=== PATIENT | female | born 1965 | race Caucasian/White ===

== ENCOUNTER 2017-02-03 09:05 | Emergency (ER) | payer BC ==
[2017-02-03 09:34] VITALS: BP 149/99; PULSE 92; TEMP 99; BMI 21.9
--- NOTE | 2017-02-03 09:35 | PDOC ---
History of Present Illness - General Chief Complaint: Respiratory Stated Complaint: COUGH & HEADACHE Time Seen by Provider: 02/03/17 09:29 History Source: Patient Past History - Past Medical History Allergies/Adverse Reactions: Allergies Allergy/AdvReac Type Severity Reaction Status Date / Time naproxen [From Naprosyn] Allergy Mild Swelling Verified 02/03/17 09:27 Home Medications: Ambulatory Orders Acetaminophen W/ Codeine #3 [Tylenol # 3 -] 1 tab PO Q6H #14 tablet MDD 3 Albuterol 0.083% Nebulizer Cortney [Ventolin 0.083% Nebulizer Soln -] 1 amp NEB QID PRN 02/03/17 Alprazolam [Xanax] 1 mg PO DAILY PRN 02/03/17 Azithromycin [Zithromax 250mg Tablets -] 250 mg PO UTDICT #6 tab 02/03/17 Benzonatate [Tessalon Pearls -] 100 mg PO TID 02/03/17 Ibuprofen [Advil -] 600 mg PO TID PRN 02/03/17 Prednisone 10 mg PO DAILY 02/03/17 COPD: No Psychiatric Problems: Yes (ANXIETY) - Surgical History Abdominal Surgery: Yes (CYSTS REMOVED FROM OVARIES) - Suicide/Smoking/Psychosocial Hx Smoking Status: No Smoking History: Unknown if ever smoked Have you smoked in the past 12 months: No Number of Cigarettes Smoked Daily: 0 Hx Alcohol Use: No Drug/Substance Use Hx: No Substance Use Type: None Hx Substance Use Treatment: No *Physical Exam - Vital Signs Last Vital Signs Temp Pulse Resp BP Pulse Ox 99.0 F 92 H 18 149/99 100 02/03/17 09:16 02/03/17 09:16 02/03/17 09:16 02/03/17 09:16 02/03/17 09:16 *DC/Admit/Observation/Transfer Diagnosis at time of Disposition: Pharyngitis Qualifiers: Pharyngitis/tonsillitis etiology: unspecified etiology Qualified Code(s): J02.9 - Acute pharyngitis, unspecified - Discharge Dispostion Disposition: HOME Condition at time of disposition: Good Admit: No - Referrals Referrals: Garry Gaffney MD [Primary Care Provider] - - Patient Instructions Printed Discharge Instructions: DI for Pharyngitis/Tonsillopharyngitis -- Adult Additional Instructions: Fluids, Use humidifier in the bedroom - Post Discharge Activity Forms/Work/School Notes: Back to Work
== END 2017-02-03 10:31 | disposition home or self-care (01) ==
LOC: FER 09:05
DX: J02.9 Acute pharyngitis, unspecified (principal); F41.9 Anxiety disorder, unspecified
CPT/HCPCS: 99281-25

== ENCOUNTER 2017-09-12 21:33 | Emergency (ER) | payer BC ==
[2017-09-12] MEDS ORDERED: AMOX TR/POT CLAV 875MG/125MG TABLETS (FP) PO ONE (21:35)
[2017-09-12] MEDS ORDERED: AMOX TR/POT CLAV 875MG/125MG TABLETS (FP) ONE (21:41)
[2017-09-12] MEDS ORDERED: morphine CARPU-JECT 2 MG/1 ML DISP.SYRIN IM ONE (21:43)
[2017-09-12 21:44] VITALS: TEMP 99; BMI 21.6
[2017-09-12] MEDS ORDERED: morphine SULFATE 4 MG/ML VIAL ONE (21:44)
[2017-09-12] MEDS ORDERED: TETANUS AND DIPHTHERIA TOXOID 0.5 ML DISP.SYRIN IM ONE (21:45)
[2017-09-12] MEDS ORDERED: DIPHTH,PERTUSS(ACELL),TET 0.5 ML DISP.SYRIN IM ONE (21:49)
--- NOTE | 2017-09-12 21:52 | PDOC ---
History of Present Illness - General History Source: Patient Exam Limitations: No Limitations - History of Present Illness Initial Comments: 09/12/17 21:55 The patient is a 51 year old female accompanied with her daughters, with a past medical history of hypertension, presents to the emergency department for evaluation of a dog bite. The patient reports receiving an unexpected dog bite to her perineum while arguing with her . She reports associated redness, burning, and pain, ranked 10/10 in severity. Denies bleeding or abnormal discharge. Of note, both the patient and dogs immunizations are UTD; however, pt is unable to recall if tetanus shot was within 5 years. The patient denies use of medication for aforementioned pain, history of surgeries, and any other injuries. Denies chest pain, shortness of breath, headache, fever, chills, nausea, vomiting, and any bowel/urinary symptoms. Allergies: Naproxen. Social History: No reported alcohol, cigarette, or drug use. Surgical History: Cysts removed from ovaries PCP: Dr. Gaffney <Quinn Lyons - Last Filed: 09/12/17 21:57> - General History Source: Patient Exam Limitations: No Limitations <Juju Richard - Last Filed: 09/12/17 22:36> - General Chief Complaint: Bite Stated Complaint: DOG BITE Time Seen by Provider: 09/12/17 21:35 Past History <Quinn Lyons - Last Filed: 09/12/17 21:57> - Past Medical History COPD: No HTN: Yes Psychiatric Problems: Yes (ANXIETY) - Surgical History Abdominal Surgery: Yes (CYSTS REMOVED FROM OVARIES) - Immunization History Td Vaccination: Yes TDAP Vaccination: Yes Immunization Up to Date: Yes - Suicide/Smoking/Psychosocial Hx Smoking Status: No Smoking History: Never smoked Have you smoked in the past 12 months: No Number of Cigarettes Smoked Daily: 0 Information on smoking cessation initiated: No Hx Alcohol Use: No Drug/Substance Use Hx: No Substance Use Type: None Hx Substance Use Treatment: No <Juju Richard - Last Filed: 09/12/17 22:36> - Past Medical History Allergies/Adverse Reactions: Allergies Allergy/AdvReac Type Severity Reaction Status Date / Time naproxen [From Naprosyn] Allergy Mild Swelling Verified 09/12/17 21:34 Home Medications: Ambulatory Orders Alprazolam [Xanax] 1 mg PO PRN 09/12/17 Amox-Tr/K Cl [Augmentin - 875Mg Tablet] 1 tab PO BID 10 Days #20 tablet Review of Systems - Review of Systems Able to Perform ROS?: Yes Comments:: General: anxious : perineal wound; no urinary sx or vaginal pain SKIN: +wound HEMATOLOGIC/LYMPHATIC: No anemia, easy bruising/bleeding ALLERGIC/IMMUNOLOGIC: No hives or skin allergy. All other systems reviewed and negative, or as documented in HPI. <Quinn Lyons - Last Filed: 09/12/17 21:57> *Physical Exam - Vital Signs Last Vital Signs Temp Pulse Resp BP Pulse Ox 99 F 90 20 167/111 99 09/12/17 21:36 09/12/17 21:36 09/12/17 21:36 09/12/17 21:36 09/12/17 21:36 - Physical Exam Comments: General: crying, anxious CVS: + peripheral pulses throughout Abdomen: soft, nontender Female : +small puncture wound to anterior perineum, bleeding controlled MSK: ISADORA x4 Neuro: alert, anxious Skin: warm and well perfused, cap refill <2 sec, normal color; +small puncture wound to anterior perineum <Quinn Lyons - Last Filed: 09/12/17 21:57> - Vital Signs Last Vital Signs Temp Pulse Resp BP Pulse Ox 99 F 90 20 167/111 99 09/12/17 21:36 09/12/17 21:36 09/12/17 21:36 09/12/17 21:36 09/12/17 21:36 - Physical Exam Female Pelvic Exam: positive: normal external exam, other (small subcutaneous puncture wound over mons pubis anterior perineum) <Juju Richard - Last Filed: 09/12/17 22:36> Medical Decision Making - Medical Decision Making Celli 51 YOF with no medical history presenting with dog bite to perineum during argument with . last tetanus x within 10 years. No other injuries associated. Family dog, up to date with vaccines. Plan: wound irrigation copiously with sterile water. Lido inj. Morphine IM, Tdap (unsure within 5 years, will update), Augmentin PO. copious irrigation with sterile water/normal saline 1Liter, tolerated without difficulty. areas cleaned and dried, xeroform/topical abx, non adherent dressings, gauze and supportive care. wound precautions discussed, monitor for signs of infection including fevers chills, purulence, malodor, pain, swelling, redness or streaking or other worsening s/s. trial of Augmentin x 10 days, if not improving or worsening sx > 24-48 hours, return sooner for reeval/wound check/IV abx. <Quinn Lyons - Last Filed: 09/12/17 21:57> *DC/Admit/Observation/Transfer - Attestations Scribe Attestion: Documentation prepared by Quinn Lyons, acting as biomedical equipment tech for Juju Richard MD. <Quinn Lyons - Last Filed: 09/12/17 21:57> - Discharge Dispostion Decision to Admit order: No <Juju Richard - Last Filed: 09/12/17 22:36> Diagnosis at time of Disposition: Puncture wound Dog bite Qualifiers: Encounter type: initial encounter Qualified Code(s): W54.0XXA - Bitten by dog, initial encounter - Discharge Dispostion Disposition: HOME Condition at time of disposition: Stable - Prescriptions Prescriptions: Amox-Tr/K Cl [Augmentin - 875Mg Tablet] 1 tab PO BID 10 Days #20 tablet - Referrals Referrals: Garry Gaffney MD [Primary Care Provider] - - Patient Instructions Printed Discharge Instructions: How to Care for a Domestic Animal Bite, DI for Animal Bites Additional Instructions: wound precautions discussed, monitor for signs of infection including fevers chills, purulence, malodor, pain, swelling, redness or streaking or other worsening signs/symptoms. trial of Augmentin twice a day x 10 days, if not improving or worsening sx >24-48 hours, return sooner for reeval/wound check/IV antibiotics. keep area clean and covered, may clean with soap and water. motrin/tylenol as needed for pain control. - Post Discharge Activity Forms/Work/School Notes: Back to Work
[2017-09-12 22:41] VITALS: BP 131/97; PULSE 87
== END 2017-09-12 22:43 | disposition home or self-care (01) ==
LOC: FER 21:33
PROC: 3E0234Z Introduction of Serum, Toxoid and Vaccine into Muscle, Percutaneous Approach (ICD-10-PCS; principal; 2017-09-12)
PROC: 3E023NZ Introduction of Analgesics, Hypnotics, Sedatives into Muscle, Percutaneous Approach (ICD-10-PCS; 2017-09-12)
DX: S31.43XA Puncture wound without foreign body of vagina and vulva, initial encounter (principal); W54.0XXA Bitten by dog, initial encounter; Y93.89 Activity, other specified; Y92.9 Unspecified place or not applicable
CPT/HCPCS: 90715; 99281-25

== ENCOUNTER 2018-09-06 08:07 | Inpatient (IN) | payer BC ==
[2018-09-05 11:09] VITALS: BMI 21.6
--- NOTE | 2018-09-06 06:57 | HP ---
History & Physical Update - Physical Physical: No Change - Assessment Assessment: No Change - Plan Plan: No Change (H&P reviwed , no changes , for vaginal hysterectomy, A.p repair )
[~2018-09-06 08:07] MED LIST: CEFAZOLIN 2 GM/D5W 2 GM/50 ML ML IVPB SCH; ceFAZolin 2 GRAM PREMIX BAG IVPB SCH
[2018-09-06] MEDS ORDERED: ceFAZolin SODIUM 1 GM VIAL ONE (09:07)
[2018-09-06] MEDS ORDERED: metroNIDAZOLE 0.75% VAGINAL GEL 70 GM TUBE ONE (09:57)
[2018-09-06] MEDS ORDERED: GENTAMICIN SO4 80 MG/2 ML VIAL ONE (10:19)
[2018-09-06] MEDS ORDERED: fentaNYL CITRATE 250 MCG/5 ML VIAL ONE (10:23)
[2018-09-06] MEDS ORDERED: LIDOCAINE HCL/PF 2% SDV 5ML VIAL ONE (10:23)
[2018-09-06] MEDS ORDERED: PROPOFOL 20 ML ONE (10:23)
[2018-09-06] MEDS ORDERED: MIDAZOLAM HCL 2 MG/2 ML SINGLE DOSE VIAL ONE (10:24)
[2018-09-06] MEDS ORDERED: ROCURONIUM BROMIDE 50 MG/5 ML SYRINGE ONE (10:24)
[2018-09-06] MEDS ORDERED: IBUPROFEN 800 MG/8 ML IJ IVPB PRN (10:38)
[2018-09-06] MEDS ORDERED: PROMETHAZINE HCL 25 MG/1 ML VIAL IVPUSH PRN (10:38)
[2018-09-06] MEDS ORDERED: ONDANSETRON 4 MG/2 ML VIAL IVPUSH PRN ×2 (10:38→13:14)
[2018-09-06] MEDS ORDERED: LACTATED RINGERS SOLUTION 1,000 ML IV SCH (10:45)
[2018-09-06] MEDS ORDERED: ceFAZolin SODIUM 1 GM VIAL IVPB ONE (10:46)
[2018-09-06] MEDS ORDERED: DEXAMETHASONE SOD PHOSPHATE 4 MG/1 ML VIAL ONE (11:12)
[2018-09-06] MEDS ORDERED: GLYCOPYRROLATE 0.2 MG/1 ML VIAL ONE (12:44)
[2018-09-06] MEDS ORDERED: NEOSTIGMINE METHYLSULFATE 0.5 MG/ML - 10 ML MDV ONE (12:44)
[2018-09-06] MEDS: ACETAMINOPHEN 1000 MG/100 ML VIAL (NON FORMULARY) IVPB PRN ×2 (13:07→22:57)
[2018-09-06] MEDS: IBUPROFEN 800 MG/8 ML IJ IVPB PRN ×2 (13:10→20:18)
[2018-09-06] MEDS ORDERED: oxyCODONE HCL 5 MG TABLET PO PRN ×2 (13:14→13:17)
[2018-09-06] MEDS ORDERED: IBUPROFEN 600 MG TABLET (FP) PO PRN (13:14)
--- NOTE | 2018-09-06 13:14 | OP ---
Operative Note - Note: Operative Date: 09/06/18 Operation: uterovaginal prolapse , rectocele. menorrhagia Implants: uterine prolapse Surgeon: Haider Bustillos Procurement Professional Logistics: Yosvany Flanagan Anesthesiologist/REPAIRER HELPER: Marion Preciado Anesthesia: General Specimens Removed: uterus, cx Estimated Blood Loss (mls): 200 Drains & Tubes with Location: calzada Drains, Volume Out (mls): 200 Blood Volume Replaced (mls): 0 Operative Report Dictated: Yes
[2018-09-06] MEDS ORDERED: ALPRAZolam 0.25 MG TABLET PO PRN (13:18)
[2018-09-06] MEDS: ELECTROLYTE-148 SOLN 1,000 ML IV SCH (16:00)
[2018-09-06] MEDS: CEFAZOLIN 2 GM/D5W 2 GM/50 ML ML IVPB SCH (18:08)
--- NOTE | 2018-09-07 00:30 | OP ---
DATE OF OPERATION: 09/06/2018 PREOPERATIVE DIAGNOSIS: Uterovaginal prolapse, metrorrhagia. POSTOPERATIVE DIAGNOSIS: Uterovaginal prolapse, metrorrhagia. PROCEDURE: Vaginal hysterectomy and posterior repair. SURGEON: Haider Bustillos MD CURATOR HORTICULTURAL MUSEUM: Yosvany Flanagan MD ANESTHESIA: General ANESTHESIOLOGIST: Marion Preciado MD ESTIMATED BLOOD LOSS: About 200 mL. DESCRIPTION OF PROCEDURE: Patient was taken to operating room, where under adequate general anesthesia in dorsal lithotomy position, vagina and abdomen were prepped and draped. An examination under anesthesia revealed uterovaginal prolapse and a rectocele and small cystocele. Uterus normal size, anteverted. Adnexa: No masses palpable. Then with the weighted speculum in the vagina, cervix was grasped with single-tooth tenaculum and paracervical area, anterior and posterior vaginal mucosa was infiltrated with diluted solution of the vasopressin. Then vaginal mucosa was cut circumferentially around the cervix, and then posterior vaginal mucosa was dissected from cervix with Metzenbaum scissors and blunt dissection until the posterior cul-de-sac peritoneum was grasped with a pickup and posterior cul-de-sac was entered. Then the bladder was dissected from the cervix with Metzenbaum scissors and blunt dissection and bladder was pushed down. Then uterosacral ligament was identified bilaterally, clamped with Gera clamps, cut and the clamps replaced with 0 Vicryl suture bilaterally. At this time, these pedicles were held with a hemostat. Then bladder was further pushed up, paracervical area was grasped with Gera clamps, cut, and the clamps were replaced with 0 Vicryl suture bilaterally. At this time, bladder was lifted up, and the uterine artery was identified bilaterally clamped, between the clamps and cut, and the clamps replaced with 0 Vicryl suture bilaterally. Then anterior peritoneum was entered with Metzenbaum scissors, and then bladder was lifted, and both upper pedicles were identified, and the Gera clamp was applied in both cornua regions of the uterus and adnexa was severed from the uterus, and the uterus and cervix was removed. Then the pedicle was tagged with 2-0 Vicryl ties, and then with 2-0 Vicryl sutures bilaterally. Both ovaries were normal. Both tubes were normal. No pelvic adhesions. Then pelvic cavity several times irrigated, no active bleeding was seen. There was a small area of bleeding at the vaginal cuff area which was sutured with subcutaneous suture of 0 Vicryl, and then peritoneum was closed with 0 Vicryl pursestring suture, then uterosacral ligament was fixed to the vaginal angle, and then vaginal mucosa closed with interrupted suture of the 2-0 Vicryl. At this time, posterior repair, rectocele repair was started by putting 2 Allis clamps at the labial opening, and then the area was infiltrated with a vasopressin and then also the posterior vaginal mucosa was infiltrated, and then excess perineum and skin were cut, and then posterior vaginal mucosa was undermined with Metzenbaum scissors and rectum was from the vaginal mucosa. Then rectocele repair was done with interrupted mattress suture of the 3-0 Vicryl, and then the posterior vaginal excess mucosa was cut, and then vaginal mucosa was sutured with continued suture of the 2-0 Vicryl, and then rest of the procedure was done at the episiotomy repair and muscles were brought together with interrupted suture of 2-0 Vicryl, and then the second layer of suture was placed to bring the tissue approximated, and then the skin was closed with interrupted suture of 3-0 Vicryl. A Alarcon was inserted, clear urine. Then vagina was packed with iodoform gauze and MetroGel cream, and patient tolerated procedure well, left the OR in good condition. Santosh [id number]
[2018-09-07] MEDS: CEFAZOLIN 2 GM/D5W 2 GM/50 ML ML IVPB SCH (01:06)
[2018-09-07] MEDS: ELECTROLYTE-148 SOLN 1,000 ML IV SCH (01:53)
[2018-09-07] MEDS: IBUPROFEN 800 MG/8 ML IJ IVPB PRN ×2 (01:53→09:25)
[2018-09-07] MEDS: ACETAMINOPHEN 1000 MG/100 ML VIAL (NON FORMULARY) IVPB PRN (04:37)
[2018-09-07 07:50] LABS: HEMOGLOBIN 11.2 GM/dL (10.7-15.3); MCHC 34.9 g/dl (32.0-36.0); MEAN CELL VOLUME 91.8 fl (80-96); MEAN PLT VOLUME 9.2 fl (7.5-11.1); PLATELET COUNT 195 K/MM3 (134-434); RBC 3.49 M/mm3 (3.60-5.2); RDW 12.6 % (11.6-15.6)
[2018-09-07 08:05] LABS: BLOOD UREA NITROGEN 10.1 mg/dL (7-18); CALCIUM 8.3 mg/dL (8.5-10.1); CREATININE 0.6 mg/dL (0.55-1.3); POTASSIUM 4.9 mmol/L (3.5-5.1)
[2018-09-07] MEDS ORDERED: ENOXAPARIN NA (PORCINE) 40 MG/0.4 ML DISP.SYRIN SQ SCH (10:00)
[2018-09-07] MEDS ORDERED: amLODIPine BESYLATE 5 MG TABLET (FP) PO SCH (10:00)
--- NOTE | 2018-09-07 13:21 | PN ---
Progress Note (short form) - Note Progress Note: pod 1 doing well, ambulating, no vaginal discharge or bleeding , voids ok CBC, BMP 09/07/18 06:00 09/07/18 06:00 Last Vital Signs Temp Pulse Resp BP Pulse Ox 98.0 F 75 18 107/54 L 100 09/07/18 04:43 09/07/18 04:43 09/07/18 04:43 09/07/18 04:43 09/06/18 16:20 abdomen soft, no distension, BS are present no cva vagina packing removed , dry, no calf tenderness plan ambulate d/c home,follow up office 2 weeks instruction given
--- NOTE | 2018-09-07 13:22 | DS ---
Physical Exam-CERTIFIED PHARMACIST ASSISTANT Vital Signs: Vital Signs Temperature 98.0 F 09/07/18 04:43 Pulse Rate 75 09/07/18 04:43 Respiratory Rate 18 09/07/18 04:43 Blood Pressure 107/54 L 09/07/18 04:43 O2 Sat by Pulse Oximetry (%) 100 09/06/18 16:20 Constitutional: Yes: Well Nourished, No Distress, Calm Eyes: Yes: WNL, Conjunctiva Clear, EOM Intact HENT: Yes: WNL, Atraumatic, Normocephalic Neck: Yes: WNL, Supple, Trachea Midline Cardiovascular: Yes: WNL, Regular Rate and Rhythm Respiratory: Yes: WNL, Regular, CTA Bilaterally Gastrointestinal: Yes: WNL ...Rectal Exam: Yes: WNL Renal/: Yes: WNL Breast(s): Yes: WNL Musculoskeletal: Yes: WNL Extremities: Yes: WNL Edema: No Integumentary: Yes: WNL Neurological: Yes: WNL, Alert, Oriented ...Motor Strength: WNL Psychiatric: Yes: WNL, Alert, Oriented Labs: CBC, BMP 09/07/18 06:00 09/07/18 06:00 Discharge Summary Reason For Visit: INCOMPLETE UTEROVAGINAL PROLAPSE Procedures: Principal: vaginal hysterectomy, posterior repair Condition: Good - Instructions Diet, Activity, Other Instructions: regular diet, no intercourse , follow up office 2 weeks, if fever, heavy vaginal bleeding , pain call md Referrals: Haider Bustillos MD [Staff Physician] - Disposition: HOME - Home Medications Comprehensive Discharge Medication List: Ambulatory Orders Alprazolam [Xanax] 1 mg PO PRN PRN 09/05/18 Amlodipine Besylate [Norvasc -] 5 mg PO DAILY 09/06/18 Ibuprofen [Motrin -] 600 mg PO QID #28 tablet 09/07/18 Oxycodone HCl/Acetaminophen [Percocet 5-325 mg Tablet] 1 - 2 tab PO Q6H PRN #14 tab MDD 4 09/07/18
[2018-09-07 13:37] VITALS: BP 130/79; PULSE 83; TEMP 98.4
--- NOTE | 2018-09-09 16:28 | PATH ---
Surgical Pathology Report Patient Name: NICOLETTE VELAZQUEZ [facility]. Rec. #: [id number] /Age/Gender: 1965 (Age: 52) / F Account: [id number] Location: [facility] OBS/SPECIAL EVENT ASSISTANT Taken: 09/06/2018 Received: 09/06/2018 Reported: 09/09/2018 Physicians: Haider Bustillos M.D. Specimen(s) Received A: UTERUS AND CERVIX B: POSTERIOR PERINEUM Clinical History Incomplete uterovaginal prolapse Final Diagnosis A. UTERUS AND CERVIX, TOTAL VAGINAL HYSTERECTOMY: 76 G UTERUS. UNREMARKABLE MYOMETRIUM AND SEROSA. SCANT ATROPHIC ENDOMETRIUM. CERVIX WITHOUT SIGNIFICANT PATHOLOGIC FINDINGS. B. POSTERIOR PERINEUM, EXCISION: SQUAMOUS MUCOSA WITH PARAKERATOSIS. Electronically Signed Jessica Goodrich M.D. Gross Description A. Received in formalin labeled "uterus and cervix," is a 76 g uterus with an attached cervix and no attached adnexa. The specimen measures 8 cm from superior to inferior, 4.2 cm from left to right and 3.8 cm from anterior to posterior. The serosa is jewell-batista and smooth. The attached cervix measures 3.7 cm in length and averages 2.8 cm in diameter. The ectocervix is jewell, smooth and glistening. The endocervix is unremarkable. The endometrial cavity appears stenotic and measures 3 cm in length and 0.6 cm from left to right. There is minimal endometrium identified. The myometrium is jewell and averages 1.9 cm in thickness. No intramural nodules are identified. Nursing Education Specialist sections are submitted in 14 cassettes as follows: 1-anterior cervix; 2-posterior cervix; 8-0-niqkjrxdn lower uterine segment; 3-2-ypucollh endomyometrium; 1-1-euxyvaalz endomyometrium, 9-14 entirely submitted endometrium. B. Received in formalin labeled "posterior perineum," are 3 jewell-brown portions of tissue ranging from 0.7 x 0.1 x 0.1 cm to 1.2 x 1.1 x 0.5 cm. The largest portion is bisected and the specimen is entirely submitted in one cassette. /09/07/2018 saudi09/07/2018
== END 2018-09-07 13:30 | disposition home or self-care (01) | DRG 743 ==
LOC: JASUSAT 08:07 → EDSTATUS 10:00 → JSAMEDAYSX 13:14 → J3W 16:36
PROVIDERS: ADMIT Obstetrics & Gynecology; ATTEND Obstetrics & Gynecology
PROC: 0JQC0ZZ Repair Pelvic Region Subcutaneous Tissue and Fascia, Open Approach (ICD-10-PCS; 2018-09-06)
PROC: 0UT90ZZ Resection of Uterus, Open Approach (ICD-10-PCS; principal; 2018-09-06 10:00)
DX: N81.4 Uterovaginal prolapse, unspecified (principal); N92.1 Excessive and frequent menstruation with irregular cycle
CPT/HCPCS: 36415; 80048; 84703; 85027; 86850; 86900; 86901; 88305-TC; 88307-TC; 94010; 94760; J0131

== ENCOUNTER 2019-12-01 21:02 | Emergency (ER) | payer BC ==
--- NOTE | 2019-12-01 21:07 | PDOC ---
History of Present Illness - General Chief Complaint: Injury Stated Complaint: FALL FROM BLEACHERS Time Seen by Provider: 12/01/19 21:06 History Source: Patient Exam Limitations: No Limitations - History of Present Illness Initial Comments: 12/01/19 21:43 This is a 54-year-old female comes in complaining of left flank pain. Patient was 5 bleachers up when her dog accidentally pulled her off the bleachers. Patient fell landing on her left flank area. Patient is experiencing pain in the left flank. Patient went to urgent care center had blood in her urine and was sent here for CAT scan. Allergies: as per nursing notes Past Medical History: none Social history: Lives with family. No smoking. No alcohol. No illicit drugs. Surgical history: None General: No fevers or chills, no weakness, no weight loss HEENT: No change in vision. No sore throat,. No ear pain CardioVascular: no chest discomfort. No shortness of breath Respiratory:No cough, or wheezing. Gastrointestinal: no nausea, vomiting, diarrhea or constipation, No rectal bleeding Genitourinary: No dysuria, hematuria, or frequency, left flank pain Musculoskeletal: No joint or muscle pain or swelling Neurologic: No headache, vertigo, dizziness or loss of consciousness Psychiatric: nor depression Skin: No rashes or easy bruising Endocrine: no increased thirst or abnormal weight change Allergic: no skin or latex allergy All other systems reviewed and normal Exam: General: Well-nourished well-developed individual, no acute distress HEENT: Throat: Normal, tonsils normal, no erythema or exudate Neck: Supple, no meningeal signs, no lymphadenopathy Eyes::Pupils equal reactive and round, extraocular motion intact Abdomen: Soft, nondistended, normal bowel sounds, there is no tenderness on palpation diffusely Left flank: There is moderate amount of pain on palpation of the left flank. There is no CVA tenderness. Extremities: Warm, dry, no cyanosis, clubbing, or edema Skin: No rashes Neuro: Alert and oriented x3, CN II - XII intact, nonfocal exam with normal strength, normal sensation, normal reflexes, normal gait, Psych: Normal mood and affect Assessment and plan: This is a 54-year-old female with left flank pain secondary to falling off some bleachers. CT of the abdomen and pelvis was ordered rule out renal injury also CBC, comp and type and screen were sent Past History - Medical History Allergies/Adverse Reactions: Allergies Allergy/AdvReac Type Severity Reaction Status Date / Time naproxen [From Naprosyn] Allergy Mild Swelling Verified 09/12/17 21:34 Home Medications: Ambulatory Orders Alprazolam [Xanax] 1 mg PO PRN PRN 09/05/18 Amlodipine Besylate [Norvasc -] 5 mg PO DAILY 09/06/18 Ondansetron [Zofran *Odt*] 8 mg SL TID #12 od.tablet 12/02/19 Anemia: No Asthma: No Cancer: No Cardiac Disorders: No CVA: No COPD: No CHF: No Dementia: No Diabetes: No GI Disorders: No Disorders: No HTN: Yes Hypercholesterolemia: No Liver Disease: No Psychiatric Problems: Yes (ANXIETY) Seizures: No Thyroid Disease: No - Surgical History Abdominal Surgery: Yes (CYSTS REMOVED FROM OVARIES) - Immunization History Td Vaccination: Yes TDAP Vaccination: Yes Immunization Up to Date: Yes - Psycho-Social/Smoking History Smoking Status: No Smoking History: Never smoked Have you smoked in the past 12 months: No Number of Cigarettes Smoked Daily: 0 ED Treatment Course - LABORATORY CBC & Chemistry Diagram: 12/01/19 21:15 12/01/19 21:20 Discharge - Discharge Information Problems reviewed: Yes Clinical Impression/Diagnosis: Contusion, flank, Dog bite Condition: Stable Disposition: HOME - Admission No - Additional Discharge Information Prescriptions: Ondansetron [Zofran *Odt*] 8 mg SL TID #12 od.tablet - Follow up/Referral - Patient Discharge Instructions Additional Instructions: Tylenol as needed for pain, Return to the emergency department immediately with ANY new, persistent or worsening symptoms. Continue any medications as previously prescribed by your physician. You should follow up with your primary doctor as soon as possible regarding today's emergency department visit. . Please make sure your doctor reviews the results of your emergency evaluation. Thank you for coming to the Emergency Department today for your care. It was a pleasure to see you today. Please note that your evaluation is INCOMPLETE until you follow-up with your doctor. - Post Discharge Activity
--- OUTSIDE RECORDS SUMMARY | 2019-12-01 21:09 | XMS ---
:1965 Author Organization [facility] Care Team Providers Name Role Phone Jayme Herrerakathyaeleni Johnson Unavailable Unavailable Re-disclosure Warning The records that you are about to access may contain information from federally- assisted alcohol or drug abuse programs. If such information is present, then the following federally mandated warning applies: This information has been disclosed to you from records protected by federal confidentiality rules (42 CFR part 2). The federal rules prohibit you from making any further disclosure of this information unless further disclosure is expressly permitted by the written consent of the person to whom it pertains or as otherwise permitted by 42 CFR part 2. A general authorization for the release of medical or other information is NOT sufficient for this purpose. The Federal rules restrict any use of the information to criminally investigate or prosecute any alcohol or drug abuse patient.The records that you are about to access may contain highly sensitive health information, the redisclosure of which is protected by Article 27-F of the [facility] Public Health law. If you continue you may haveaccess to information: Regarding HIV / AIDS; Provided by facilities licensed or operated by the [facility] Office of Mental Health; or Provided by the [facility] Office for People With Developmental Disabilities. If such information is present, then the following [facility] mandated warning applies: This information has been disclosed to you from confidential records which are protected by state law. State law prohibits you from making any further disclosure of this information without the specific written consent of the person to whom it pertains, or as otherwise permitted by law. Any unauthorized further disclosure in violation of state law may result in a fine or fdc sentence or both. A general authorization for the release of medical or other information is NOT sufficient authorization for further disclosure. Allergies and Adverse Reactions Type Description Substance Reaction Status Data Source(s ) 3 No Known Allergies Clindamycin 150 MG Oral NEXTGEN ([facility] Tablet [Clintabs] [facility]) Encounters Encounter Providers Location Date Indications Data Source(s ) Outpatient Attender: Beqieleni 12/01/2019 NEXTGEN ( [facility]er[facility]: [facility] Insurance Providers Payer name Policy type Policy ID Covered Covered constitution party's Policy P teodoro / Coverage constitution party ID relationship to Hirsch Inf ormation type hirsch BC PPO [id number] OT [id number] [id number] [place] Results ID Date Data Source [id number] 11/24/2019 10:48:00 AM EDT [facility] Name Value Range Interpretation Description Data Sup porting Code Source(s) Document(s ) SARS [facility] coronavirus 2 RNA This lab was ordered by [employer] and reported by [facility]. Procedure
[2019-12-01 21:20] VITALS: BP 124/61; PULSE 71; TEMP 98.1; BMI 20.7
[2019-12-01] MEDS ORDERED: SODIUM CHLORIDE 1,000 ML IV ONE (21:21)
[2019-12-01] MEDS ORDERED: morphine CARPU-JECT 4 MG/1 ML DISP.SYRIN IVPUSH ONE (21:21)
[2019-12-01] MEDS ORDERED: morphine SULFATE 4 MG/ML VIAL ONE (21:22)
[2019-12-01 21:34] LABS: BASO % 0.9 % (0-2.0); EOS % 1.2 % (0-4.5); HEMATOCRIT 39.7 % (32.4-45.2); HEMOGLOBIN 13.3 GM/dl (10.7-15.3); MCH 31.7 pg (25.7-33.7); MCHC 33.5 g/dl (32.0-36.0); MEAN CELL VOLUME 94.6 fl (80-96); MEAN PLT VOLUME 9.3 fl (7.5-11.1); MONO % 5.5 % (3.8-10.2); NEUT % 78.4 % (42.8-82.8); PLATELET COUNT 276 K/MM3 (134-434); RDW 12.5 % (11.6-15.6); WHITE BLOOD COUNT 11.1 K/mm3 (4.0-10.8)
[2019-12-01 21:42] LABS: ALBUMIN 5.3 g/dl (3.4-5.0); BILIRUBIN,TOTAL 0.6 mg/dl (0.2-1); CALCIUM 9.4 mg/dl (8.5-10); CREATININE 0.7 mg/dl (0.55-1.3); POTASSIUM 3.6 mmol/L (3.5-5.1); TOT PROT 8.4 g/dl (6.4-8.2)
== END 2019-12-02 00:30 | disposition home or self-care (01) ==
LOC: FER 21:02
PROC: 3E033NZ Introduction of Analgesics, Hypnotics, Sedatives into Peripheral Vein, Percutaneous Approach (ICD-10-PCS; principal; 2019-12-01)
PROC: 3E0337Z Introduction of Electrolytic and Water Balance Substance into Peripheral Vein, Percutaneous Approach (ICD-10-PCS; 2019-12-01)
DX: S30.1XXA Contusion of abdominal wall, initial encounter (principal)
CPT/HCPCS: 36415; 74177-TC; 80053; 85025; 99285-25; Q9967

== ENCOUNTER 2019-12-02 09:19 | Emergency (ER) | payer BC ==
--- OUTSIDE RECORDS SUMMARY | 2019-12-02 09:27 | XMS ---
:1965 Author Organization [facility] Care Team Providers Name Role Phone Jaspreet Herrera Unavailable Unavailable Re-disclosure Warning The records that [...] is protected by Article 27-F of the [facility] Public Health law. If you continue you may haveaccess to information: Regarding HIV / AIDS; Provided by facilities licensed or operated by the [facility] Office of Mental Health; or Provided by the [facility] Office for People With Developmental Disabilities. If such information is present, then the following [facility] mandated warning applies: This information has [...] law may result in a fine or mcc sentence or both. A general authorization for the release of medical or other information is NOT sufficient authorization for further disclosure. Allergies and Adverse Reactions Type Description Substance Reaction Status Data Source(s ) 3 NO KNOWN ALLERGIES Clindamycin 150 MG Oral NEXTGEN ([facility] Tablet [Clintabs] [facility]) Encounters Encounter Providers Location Date Indications Data Source(s ) Outpatient Attender: Beqir 12/01/2019 NEXTGEN ( [facility] SopiReferrer: Beqir 06:20:00 PM [facility] Sopi [facility] Medical [facility]) Insurance Providers Payer name Policy type Policy ID Covered Covered alliance party's Policy P teodoro / Coverage alliance party ID relationship to Gay[employer] Inf ormation type gaytan BC PPO [id number] OT [id number] [place] [id number] [place] Plan [place] Problems, Conditions, and Diagnoses Code Display Name Description Problem Type Effective Dates Data Source(s) M54.5 Low back pain Acute left-sided Diagnosis 12/01/2019 NEXTG EN low back pain 06:20:00 PM EDT ([facility] without sciatica [facility]) Surgeries/Procedures Procedure Description Date Indications Data Source(s) OFFICE/OUTPATIENT OFFICE/OUTPATIENT 12/01/2019 NEXTG EN ([facility] VISIT NEW VISIT NEW 12:00:00 AM [facility]) URINALYSIS NONAUTO URINALYSIS NONAUTO 12/01/2019 NEX TGEN ([facility] W/O SCOPE W/O SCOPE 12:00:00 AM [facility]) Results ID Date Data Source [id number] 11/24/2019 10:48:00 AM EDT [facility] Name Value Range Interpretation Description Data Sup porting Code Source(s) Document(s ) SARS [facility] coronavirus 2 RNA This lab was ordered by [employer] and reported by [facility]. Procedure
[2019-12-02 09:32] VITALS: BP 137/90; PULSE 74; TEMP 98.7; BMI 20.7
[2019-12-02] MEDS ORDERED: oxyCODONE HCL 5 MG TABLET PO ONE (09:39)
--- NOTE | 2019-12-02 09:40 | PDOC ---
History of Present Illness - General Chief Complaint: Injury Stated Complaint: pain, injury Time Seen by Provider: 12/02/19 09:21 - History of Present Illness Initial Comments: 12/02/19 09:40 54 F with h/o HTN presents to ED with L chest wall pain and L buttock pain after falling yesterday. Pt states that she fell off the bleachers onto her back. She was seen at urgent care initially and subsequently sent to this ER last night. Pt had CT abd/pelvis with IV contrast that was read as normal. She states that she went home and took motrin and tylenol, with no relief. Pt states that she has had persistent back pain, and she also complains of L chest wall pain. States that she does not recall falling on her chest but has tenderness over her L lateral chest wall. Denies SOB. Denies pain radiating to back. Denies abdominal or flank pain. Past History - Medical History Allergies/Adverse Reactions: Allergies Allergy/AdvReac Type Severity Reaction Status Date / Time naproxen [From Naprosyn] Allergy Verified 12/02/19 09:40 Home Medications: Ambulatory Orders Alprazolam [Xanax] 1 mg PO PRN PRN 09/05/18 Amlodipine Besylate [Norvasc -] 5 mg PO DAILY 09/06/18 Acetaminophen [Tylenol -] 500 mg PO PRN PRN 12/02/19 Ibuprofen [Motrin -] 400 mg PO PRN PRN 12/02/19 Anemia: No Asthma: No Cancer: No Cardiac Disorders: No CVA: No COPD: No CHF: No Dementia: No Diabetes: No GI Disorders: No Disorders: No HTN: Yes Hypercholesterolemia: No Liver Disease: No Psychiatric Problems: Yes (ANXIETY) Seizures: No Thyroid Disease: No - Surgical History Abdominal Surgery: Yes (CYSTS REMOVED FROM OVARIES) - Reproductive History Is Patient Now?: No - Immunization History Td Vaccination: Yes TDAP Vaccination: Yes Immunization Up to Date: Yes - Psycho-Social/Smoking History Smoking Status: No Smoking History: Never smoked Have you smoked in the past 12 months: No Number of Cigarettes Smoked Daily: 0 Information on smoking cessation initiated: No - Substance Abuse Hx (Audit-C & DAST Scrn) How often the patient has a drink containing alcohol: Never Score: In Men: 4 or > Positive; In Women: 3 or > Positive: 0 Screen Result (Pos requires Nsg. Audit-10AR): Negative In the last yr the pt used illegal drug/Rx for NonMed reason: No Score: Yes response is considered Positive: 0 Screen Result (Positive result requires Nsg. DAST-10): Negative Review of Systems - Review of Systems Comments:: 12/02/19 09:45 "GENERAL/CONSTITUTIONAL: No fever or chills. No weakness. HEAD, EYES, EARS, NOSE AND THROAT: No change in vision. No ear pain or discharge. No sore throat. CARDIOVASCULAR: +L chest wall pain, no shortness of breath, no loss of consciousness RESPIRATORY: No cough, wheezing, or hemoptysis. GASTROINTESTINAL: No nausea, vomiting, diarrhea or constipation. GENITOURINARY: No dysuria, frequency, or change in urination. MUSCULOSKELETAL: + L buttock pain, No joint or muscle swelling or pain. No neck or back pain. SKIN: No rash NEUROLOGIC: No vertigo, no change in strength/sensation. ENDOCRINE: No increased thirst. No abnormal weight change. HEMATOLOGIC/LYMPHATIC: No anemia, easy bleeding, or history of blood clots. ALLERGIC/IMMUNOLOGIC: No hives or skin allergy. *Physical Exam - Vital Signs Last Vital Signs Temp Pulse Resp BP Pulse Ox 98.7 F 74 18 137/90 100 12/02/19 09:20 12/02/19 09:20 12/02/19 09:20 12/02/19 09:20 12/02/19 09:20 - Physical Exam 12/02/19 09:45 GENERAL: Awake, alert, and fully oriented, in no acute distress. HEAD: No signs of trauma EYES: PERRLA, EOMI, sclera anicteric, conjunctiva clear ENT: Auricles normal inspection, hearing grossly normal, nares patent, oropharynx clear without exudates. Moist mucosa NECK: Nontender, no stepoffs, Normal ROM, supple, no lymphadenopathy, JVD, or masses CHEST: + TTP over L lateral ribcage LUNGS: Breath sounds equal, clear to auscultation bilaterally. No wheezes, and no crackles HEART: Regular rate and rhythm, normal S1 and S2, no murmurs, rubs or gallops ABDOMEN: Soft, nontender, normoactive bowel sounds. No guarding, no rebound. No masses EXTREMITIES: + TTP over L upper buttock, no ecchymosis, Normal range of motion, no edema. No clubbing or cyanosis. No cords, erythema, or tenderness NEUROLOGICAL: Cranial nerves II through XII intact. 5/5 strength and sensation in all extremities, Normal speech, normal gait, normal cerebellar function SKIN: Warm, Dry, normal turgor, no rashes or lesions noted. Heart Score/ECG Review - ECG Impressions Comment:: 12/02/19 09:51 NSR, no BRYCE/STDs, no TWIs, axis wnl, intervals wnl, rate 72 ED Treatment Course - RADIOLOGY Radiology Studies Ordered: Category Date Time Status CHEST CT WITHOUT CONTRAST [CT] Stat CT Scan 12/02/19 09:39 Ordered Medical Decision Making - Medical Decision Making 12/02/19 09:46 54 F with L chest wall pain and L buttock pain. Had CT abd/pelv last night that was normal per [facility] read. No headstrike/LOC. No indication for head or c-spine imaging per [place] head ct/c-spine rules. EKG without evidence of ischemia. - CT chest - EKG - Pain control 12/02/19 13:14 CT shows possible L 4th rib fx Pt reassessed - pain much better controlled after oxy 10mg Will DC with pain control. Pt is well appearing, with normal vitals. Clinically stable for DC at this time. I discussed the physical exam findings, ancillary test results and final diagnoses with the patient. I answered all of the patient's questions. The patient was satisfied with the care received and felt comfortable with the discharge plan and treatment plan. The patient agrees to follow up with the primary care physician within 24-72 hours. Discharge - Discharge Information Problems reviewed: Yes Clinical Impression/Diagnosis: Fall, Chest wall pain, Rib fracture Disposition: HOME - Follow up/Referral - Patient Discharge Instructions Patient Printed Discharge Instructions: DI for Rib Fracture Additional Instructions: You have a rib fracture. Take one percocet every 8 hours, alternating with Motrin every 8 hours. Use the incentive spirometer as instructed to ensure you are taking adequately deep breaths. If you experience worsening pain, shortness of breath, cough, fever, or any other concerning symptoms, return to the ER immediately. - Post Discharge Activity Work/Back to School Note: Back to Work
[2019-12-02] MEDS ORDERED: oxyCODONE HCL 5 MG TABLET ONE (09:41)
[2019-12-02] MEDS ORDERED: KETOROLAC TROMETHAMINE 30 MG/1 ML VIAL IM ONE (11:51)
[2019-12-02] MEDS ORDERED: KETOROLAC TROMETHAMINE 30 MG/1 ML VIAL ONE (11:53)
--- NOTE | 2019-12-03 07:08 | EKG ---
Test Reason : Blood Pressure : / mmHG Vent. Rate : 069 BPM Atrial Rate : 069 BPM P-R Int : 122 ms QRS Dur : 078 ms QT Int : 430 ms P-R-T Axes : 067 076 074 degrees QTc Int : 460 ms NORMAL SINUS RHYTHM NORMAL ECG WHEN COMPARED WITH ECG OF 01-APR-2011 13:23, T WAVE INVERSION NO LONGER EVIDENT IN ANTERIOR LEADS CLINICAL CORRELATION IS RECOMMENDED BASELINE ARTIFACT Confirmed by KRISTINE QUIROGA, MACARENA ([id number]) on 12/03/2019 7:07:32 AM Referred By: Confirmed By:MACARENA CARMONA MD
== END 2019-12-02 13:37 | disposition home or self-care (01) ==
LOC: FER 09:19
PROC: 3E0233Z Introduction of Anti-inflammatory into Muscle, Percutaneous Approach (ICD-10-PCS; principal; 2019-12-02)
DX: S22.32XA Fracture of one rib, left side, initial encounter for closed fracture (principal); R07.9 Chest pain, unspecified
CPT/HCPCS: 71250-TC; 93005; 99284-25

== ENCOUNTER 2021-05-07 08:30 | Emergency (ER) | payer OTHER, BC ==
[2021-05-07 08:47] VITALS: BP 141/90; PULSE 83; TEMP 98.4; BMI 20.3
[2021-05-07] MEDS ORDERED: KETOROLAC TROMETHAMINE 30 MG/1 ML VIAL IM ONE (10:05)
[2021-05-07] MEDS ORDERED: METHOCARBAMOL 500 MG TABLET PO ONE (10:05)
[2021-05-07] MEDS ORDERED: KETOROLAC TROMETHAMINE 30 MG/1 ML VIAL ONE (10:57)
[2021-05-07] MEDS ORDERED: METHOCARBAMOL 500 MG TABLET ONE ×2 (10:57→11:01)
== END 2021-05-07 11:40 | disposition home or self-care (01) ==
LOC: JERFT 08:30
PROC: 3E0233Z Introduction of Anti-inflammatory into Muscle, Percutaneous Approach (ICD-10-PCS; principal; 2021-05-07)
DX: R51.9 Headache, unspecified (principal); M25.532 Pain in left wrist
CPT/HCPCS: 70450-TC; 71046-TC-FY; 73110-TC-LT-FY; 93005; 93010; 99285-25

== ENCOUNTER 2021-08-22 16:28 | Emergency (ER) | payer BC ==
[2021-08-22 17:03] VITALS: BP 131/90; PULSE 70; TEMP 99
[2021-08-22 17:41] LABS: HCG,QUALITATIVE URINE Negative
[2021-08-22] MEDS ORDERED: SODIUM CHLORIDE 1,000 ML IV STA (17:50)
[2021-08-22] MEDS ORDERED: KETOROLAC TROMETHAMINE 30 MG/1 ML VIAL IVPUSH ONE (17:50)
[2021-08-22] MEDS ORDERED: KETOROLAC TROMETHAMINE 30 MG/1 ML VIAL ONE (18:01)
[2021-08-22 18:18] LABS: HEMATOCRIT 36.9 % (32.4-45.2); HEMOGLOBIN 12.9 G/dL (10.7-15.3); MCHC 34.9 g/dl (32.0-36.0); MEAN CELL VOLUME 94.5 fl (80-96); PLATELET COUNT 220.7 10^3/uL (134-434); RDW 14.1 % (11.6-15.6); WHITE BLOOD COUNT 7.2 10^3/uL (4.0-10.8)
[2021-08-22 18:28] LABS: ALBUMIN 4.8 g/dl (3.4-5.0); BILIRUBIN,TOTAL 0.5 mg/dl (0.2-1); CALCIUM 9.7 mg/dl (8.5-10); CREATININE 0.7 mg/dl (0.55-1.3); TOT PROT 7.6 g/dl (6.4-8.2)
[2021-08-22 18:35] LABS: PLATELET ESTIMATE ADEQUATE
== END 2021-08-22 19:08 | disposition home or self-care (01) ==
LOC: FER 16:28
PROC: 3E0333Z Introduction of Anti-inflammatory into Peripheral Vein, Percutaneous Approach (ICD-10-PCS; principal; 2021-08-22)
PROC: 3E0337Z Introduction of Electrolytic and Water Balance Substance into Peripheral Vein, Percutaneous Approach (ICD-10-PCS; 2021-08-22)
DX: R10.9 Unspecified abdominal pain (principal)
CPT/HCPCS: 36415; 74176-TC; 80053; 81003; 81015; 84703; 85027; 87086; 99285-25